=== PATIENT | female | born 1975 | race Caucasian/White ===

== ENCOUNTER 2021-12-15 09:45 | Inpatient (IN) | payer OTHER ==
[~2021-12-15] VITALS: Ht 165 cm; Wt 75.0 kg
[~2021-12-15 09:45] MED LIST: CLARITIN10 MG PO; IBUPROFEN800 MG PO; PRILOSEC20 MG PO
[2021-12-15 10:24] LABS: HCG (URINE) SCREEN NEGATIVE (NEGATIVE)
[2021-12-15 10:39] LABS: HCT 42.9 % (37.0-47.0); HGB 14.1 g/dl (12.5-16.0); MCH 29.4 pg (25.0-31.0); MCHC 32.9 g/dL (32.0-36.0); MCV 89.4 fL (78.0-100.0); MPV 10.2 fL (6.0-9.5); RBC 4.8 M/uL (4.20-5.40); RDW 13.2 % (11.5-14.0); WBC 12.3 K/uL (4.0-10.5)
== END 2021-12-15 23:37 | disposition home or self-care (01) | DRG 743 ==
LOC: FAS 09:45 → FMS 17:24
PROVIDERS: ADMIT Specialist
PROC: 0TJB8ZZ Inspection of Bladder, Via Natural or Artificial Opening Endoscopic (ICD-10-PCS; 2021-12-15)
PROC: 0UT90ZZ Resection of Uterus, Open Approach (ICD-10-PCS; principal; 2021-12-15 11:00)
PROC: 0UT70ZZ Resection of Bilateral Fallopian Tubes, Open Approach (ICD-10-PCS; 2021-12-15 11:00)
PROC: 0UT20ZZ Resection of Bilateral Ovaries, Open Approach (ICD-10-PCS; 2021-12-15 11:00)
PROC: 0DNW0ZZ Release Peritoneum, Open Approach (ICD-10-PCS; 2021-12-15 11:00)
DX: N92.1 Excessive and frequent menstruation with irregular cycle (principal); N73.6 Female pelvic peritoneal adhesions (postinfective)
CPT/HCPCS: 36415; 84703; 86850; 86900; 86901; J0690; J1100; J1170; J1885; J2250; J2405; J2704; J3010; J7120; Q0162